=== PATIENT | female | born 1975 | race Caucasian/White ===

== ENCOUNTER → 2019-05-14 | Outpatient (CLI) | payer BC ==
[~2019-05-14] MED LIST: FLONASE 0.05%50 MCG NASAL; IBUPROFEN 800800 M1 PO; LISINOPRIL-HCT1 EAC1 PO; LO LOESTRIN FE1 EACH PO; VOLTAREN GEL 1100 G2 TOP
== END ==
LOC: M.PC 01:26
DX: M47.22 Other spondylosis with radiculopathy, cervical region (principal); M25.512 Pain in left shoulder; Z88.2 Allergy status to sulfonamides

== ENCOUNTER → 2019-06-04 | Outpatient (CLI) | payer BC | LOC: M.MRI 11:03 | DX: M50.21 Other cervical disc displacement, high cervical region (principal); M85.68 Other cyst of bone, other site; M47.812 Spondylosis without myelopathy or radiculopathy, cervical region ==

== ENCOUNTER → 2019-06-13 | Outpatient (CLI) | payer BC | END | disposition home or self-care (01) | LOC: M.PC 05:27 | DX: M54.2 Cervicalgia (principal); M47.22 Other spondylosis with radiculopathy, cervical region; M71.38 Other bursal cyst, other site; Z88.2 Allergy status to sulfonamides; Z79.899 Other long term (current) drug therapy ==

== ENCOUNTER → 2019-07-09 | Outpatient (CLI) | payer BC | LOC: M.PC 04:43 | DX: M47.22 Other spondylosis with radiculopathy, cervical region (principal); M25.512 Pain in left shoulder ==

== ENCOUNTER → 2019-08-06 | Outpatient (CLI) | payer BC | LOC: M.PC 02:59 | DX: M47.22 Other spondylosis with radiculopathy, cervical region (principal); M25.512 Pain in left shoulder; N88.8 Other specified noninflammatory disorders of cervix uteri; Z79.891 Long term (current) use of opiate analgesic ==